=== PATIENT | male | born 1960 | race Caucasian/White ===

== ENCOUNTER → 2021-04-30 10:14 | Outpatient (BNVA) | payer MEDICARE, SELFPAY | PROVIDERS: Family Provider Physician Assistant Medical; PCP Physician Assistant Medical; Visit Provider Orthopaedic Surgery | DX: S82.842A Displaced bimalleolar fracture of left lower leg, initial encounter for closed fracture (principal); S82.46 Segmental fracture of shaft of fibula; X58.XXXA Exposure to other specified factors, initial encounter; Z46.89 Encounter for fitting and adjustment of other specified devices; S82.842D Displaced bimalleolar fracture of left lower leg, subsequent encounter for closed fracture with routine healing; X58.XXXD Exposure to other specified factors, subsequent encounter | CPT/HCPCS: 73610; 97760; L4361 ==

== ENCOUNTER 2021-04-30 14:29 | Outpatient (CLI) | payer MEDICARE, SELFPAY | END 2021-04-30 14:30 | disposition home or self-care (01) | LOC: SPT 14:30 | PROVIDERS: Family Provider Physician Assistant Medical; PCP Physician Assistant Medical; Visit Provider Orthopaedic Surgery | DX: Z46.89 Encounter for fitting and adjustment of other specified devices (principal); S82.842D Displaced bimalleolar fracture of left lower leg, subsequent encounter for closed fracture with routine healing; S82.46 Segmental fracture of shaft of fibula; X58.XXXD Exposure to other specified factors, subsequent encounter | CPT/HCPCS: 97760; L4361 ==

== ENCOUNTER → 2021-05-16 11:14 | Outpatient (BNVA) | payer MEDICARE, SELFPAY | PROVIDERS: Family Provider Physician Assistant Medical; PCP Physician Assistant Medical; Visit Provider Orthopaedic Surgery | DX: S82.842A Displaced bimalleolar fracture of left lower leg, initial encounter for closed fracture (principal); S82.462A Displaced segmental fracture of shaft of left fibula, initial encounter for closed fracture; X58.XXXA Exposure to other specified factors, initial encounter | CPT/HCPCS: 73610 ==

== ENCOUNTER → 2021-06-06 11:10 | Outpatient (BNVA) | payer MEDICARE, SELFPAY | PROVIDERS: Family Provider Physician Assistant Medical; PCP Physician Assistant Medical; Visit Provider Orthopaedic Surgery | DX: S82.842A Displaced bimalleolar fracture of left lower leg, initial encounter for closed fracture (principal); X58.XXXA Exposure to other specified factors, initial encounter | CPT/HCPCS: 73610 ==

== ENCOUNTER → 2021-07-23 11:42 | Outpatient (BNVA) | payer MEDICARE, SELFPAY | PROVIDERS: Family Provider Physician Assistant Medical; PCP Physician Assistant Medical; Visit Provider Orthopaedic Surgery | DX: S82.842A Displaced bimalleolar fracture of left lower leg, initial encounter for closed fracture (principal); X58.XXXA Exposure to other specified factors, initial encounter | CPT/HCPCS: 73610 ==

== ENCOUNTER 2024-10-27 08:53 | Outpatient (CLI) | payer MEDICARE, SELFPAY ==
--- NOTE | 2024-10-27 09:00 | CT_ITS ---
WS: [id number] LDCT LUNG CANCER SCREENING TECHNIQUE: Noncontrast CT of the chest with coronal and sagittal reformatted images. CLINICAL INFORMATION: NICOTINE DEPENDENCE,CIGARETTES COMPARISON: None. DLP: 78.10 mGy.cm DIvol: Mean CTDIvol: 1.60 (mGy) All CT scans at [facility] use at least one of these dose optimization techniques: automat ed exposure control; mA and/or kV adjustment per patient size (includes targeted exams where dose is matched to clinical indication); or iterative reconstruction. FINDINGS: Normal caliber thoracic aorta. Aortic calcification. No mediastinal or hilar lymphadenopathy. No axil eleni lymphadenopathy. Dense coronary calcification. Tiny esophageal hiatal hernia. Normal LEFT adrenal gland. RIGHT lower lobe nodule measuring 5 to 6 mm. A few tiny micronodules in the RIGHT middle lobe along t he fissure. Mild chronic emphysematous changes. Subsegmental atelectasis in the lingula. 3 mm RIGHT p erifissural nodule CT/CT lung screening 11832 IMPRESSION: 5 to 6 mm nodule RIGHT lower lobe. No comparisons. Recommend 6-month follow-up. LUNG-RADS: 3-Probably Benign FOLLOW UP: 6 Month LDCT
== END 2024-10-27 08:54 | disposition home or self-care (01) ==
LOC: RAD 08:55
PROVIDERS: Family Provider Physician Assistant Medical; PCP Physician Assistant Medical; Visit Provider Family Medicine
DX: Z12.2 Encounter for screening for malignant neoplasm of respiratory organs (principal); F17.210 Nicotine dependence, cigarettes, uncomplicated; I70.0 Atherosclerosis of aorta; I25.84 Coronary atherosclerosis due to calcified coronary lesion; R91.8 Other nonspecific abnormal finding of lung field; J98.11 Atelectasis
CPT/HCPCS: 71271

== ENCOUNTER → 2025-01-11 14:44 | Outpatient (BNVA) | payer MEDICARE, SELFPAY | PROVIDERS: Family Provider Physician Assistant Medical; PCP Physician Assistant Medical; Visit Provider Internal Medicine | DX: R07.9 Chest pain, unspecified (principal); I73.9 Peripheral vascular disease, unspecified; R00.2 Palpitations | CPT/HCPCS: 93005; 99204 ==

== ENCOUNTER 2025-02-01 14:33 | Outpatient (CLI) | payer MEDICARE, SELFPAY ==
--- NOTE | 2025-02-01 14:30 | USCV_ITS ---
Denis Alvarez Age: 64 Gender: M : 1960 Exam Date: 02/01/2025 14:59 Ordering Phys: John Avila M.D ([email or web address]) Technologist: EAN [place] [facility] [place]: [place] Risk Factors: Previous Vascular Surgery: RIGHT LEFT Waveform Velocity (cm/s) Velocity (cm/s) Waveform Triphasic Iliac Prox Triphasic 70.3 57.3 Triphasic 62.4 Iliac Mid 61.7 Triphasic Triphasic 54.4 Iliac Distal 49.4 Triphasic Triphasic 64.0 INSURANCE [employer]MIUM AUDITOR 65.0 Triphasic Triphasic 72.0 SFA Prox 67.0 Triphasic Triphasic 73.0 SFA Mid 77.0 Triphasic Triphasic 61.0 SFA Dist 45.0 Triphasic Triphasic 45.0 POP 37.0 Triphasic Triphasic 67.0 HOOP MAKER 73.0 Triphasic Triphasic 97.0 DPA 78.0 Triphasic 1.3 JHONATAN 1.1 FINDINGS Mild to moderate scattered plaques in the iliac arteries on both sides Normal Doppler flow velocities and Doppler waveforms bilaterally Resting JHONATAN 1.3 on the right and 1.1 on the left CONCLUSIONS 1. Normal resting arterial Doppler flow velocities and waveforms suggesting no significant arterial obstruction1. 2 mild to moderate scattered plaques in the iliac arteries bilaterally Dr Macarena Valera MD [facility] (Electronically Signed) Final Date: 03 February 2025 13:57 S
== END 2025-02-01 14:34 | disposition home or self-care (01) ==
LOC: RAD 14:34
PROVIDERS: PCP Family Medicine; Visit Provider Internal Medicine
DX: M79.604 Pain in right leg (principal); M79.605 Pain in left leg; I70.8 Atherosclerosis of other arteries
CPT/HCPCS: 93925

== ENCOUNTER 2025-06-27 20:02 | Outpatient (CLI) | payer MEDICARE, SELFPAY | END 2025-06-27 20:03 | disposition home or self-care (01) | LOC: SLEEP 20:05 | PROVIDERS: PCP Family Medicine; Visit Provider Internal Medicine Pulmonary Disease | DX: G47.30 Sleep apnea, unspecified (principal); G47.61 Periodic limb movement disorder | CPT/HCPCS: 95810 ==